=== PATIENT | female | born 2000 | race Caucasian/White ===

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

== ENCOUNTER → 2020-12-14 | Outpatient (CLI) | payer OTHER ==
--- NOTE | 2020-12-14 13:45 | RAD ---
EXAM: Renal sonogram. HISTORY: Cystitis. TECHNIQUE: Sonographic imaging of the kidneys and bladder was performed. COMPARISON: None. FINDINGS: The kidneys are normal in size. No solid or cystic renal lesion is seen. There is no hydron ephrosis. The prevoid bladder volume is 335 cc. The ureteral jets are both seen. The bladder wall is normal in thickness. The aorta is normal in caliber. The inferior vena cava is patent. IMPRESSION: Sonographically unremarkable kidneys and urinary bladder. Electronically signed by: Samaria Saldivar MD (12/14/2020 1:42 PM) [id number]
== END ==
LOC: US 12:47
PROVIDERS: ATTEND Urology
DX: N30.21 Other chronic cystitis with hematuria (principal)
CPT/HCPCS: 76770

== ENCOUNTER 2021-10-04 02:40 | Emergency (ER) | payer OTHER ==
[~2021-10-04] VITALS: Ht 162.6 cm; Wt 68.4 kg
--- NOTE | 2021-10-04 02:52 | PHYS DOC ---
Past History Past Medical History: No Pertinent History, Constipation Past Surgical History: No Surgical History Smoking: Non-smoker Alcohol Use: None Drug Use: None General Adult EDM: Chief Complaint: ABDOMINAL PAIN HPI: HPI: ".. I ve had bad abdomen pain.. I could not sleep.. I get abd. pain.. but this is worse than usual... " Patient is a 21 year old male who presents with above hx of abdomen pain. Pain is described as generalized with some localization to epigastric abdomen and left flank. Patient has had past medical history of constipation. Uses a IUD for control. No history of STDs. No recent travel. Did eat abdominals tonight for dinner. Patient has had some history of suspect IBS. Patient has had COVID vaccination x3. Has not had flu vaccination. No history of trauma. No history of vaginal discharge. No specific ill contacts. Review of Systems: Review of Systems: Constitutional: Denies fever or chills Eyes: Denies change in visual acuity HENT: Denies nasal congestion or sore throat Respiratory: Denies cough or shortness of breath Cardiovascular: Denies chest pain or edema GI: Denies abdominal pain, nausea, vomiting, bloody stools or diarrhea : Denies dysuria Musculoskeletal: Denies back pain or joint pain Integument: Denies rash Neurologic: Denies headache, focal weakness or sensory changes Endocrine: Denies polyuria or polydipsia Lymphatic: Denies swollen glands Psychiatric: Denies depression or anxiety Family History: Family History: Kidney stones with mother Current Medications: Current Meds: See nursing for home meds Allergies: Allergies: Allergies Coded Allergies Type Severity Reaction Last Updated Verified Beef Containing Products Allergy Severe 11/23/16 Yes Physical Exam: PE: Constitutional: Well developed, well nourished, moderate acute distress, non- toxic appearance. [] HENT: Normocephalic, atraumatic, bilateral external ears normal, oropharynx moist, no oral exudates, nose normal. [] Eyes: PERRLA, EOMI, conjunctiva normal, no discharge. [] Neck: Normal range of motion, no tenderness, supple, no stridor. [] Cardiovascular:Heart rate regular rhythm, no murmur [] Lungs & Thorax: Bilateral breath sounds equal apex on auscultation [] Abdomen: Bowel sounds normal, soft, epigastric and right mid tenderness, no masses, no pulsatile masses. Distended. Mild rebound pain to epigastric. Skin: Warm, dry, no erythema, no rash. [] Back: No tenderness, no CVA tenderness. [] Extremities: No tenderness, no cyanosis, no clubbing, ROM intact, no edema. No psoas sign. Neurologic: Alert and oriented X 3, normal motor function, normal sensory function, no focal deficits noted. [] Psychologic: Affect very anxious, judgement normal, mood normal. [] EKG: EKG: [] Radiology/Procedures: Radiology/Procedures: [address] [address] IMAGING REPORT Signed PATIENT: ROX MENJIVAR ACCOUNT: [id number] : 2000 LOCATION: ER AGE: 21 SEX: F EXAM STATUS: REG ER ORD. PHYSICIAN: ALVARO PLASCENCIA MD REASON: Left sided and lower abdomen pain Omni 300 75cc PROCEDURE: CT ABD PELV W/ORAL&IV CONTRAST CT OF THE ABDOMEN AND PELVIS WITH IV CONTRAST. History: Reason: Left sided and lower abdomen pain Omni 300 75cc / Spl. Inst ructions: / History: Comparison:None. Procedure: Contiguous axial images of the abdomen and pelvis were performed after the administration of 75 cc of Omnipaque 300 IV contrast and oral contrast. Findings: There is an IUD which appears well seated in the uterus. There is mild free fluid in the pelvis. 1.9 similar hypoattenuating lesion in the pelvis and left tibia and ovarian cyst. The appendix is normal. The gallbladder appears normal. Liver: Unremarkable Spleen: Unremarkable Pancreas: Unremarkable Adrenal Glands: Unremarkable Kidneys: Unremarkable There is no mass or lymphadenopathy. There is no free air. There is no free fluid. The urinary bladder appears normal. Impression: 1. IUD in the uterus appears well-positioned. 2. Mild free fluid in the pelvis could be due to a ruptured ovarian cyst. There is also small cyst in the left ovary. This assumes the patient is not . End Impression PQRS Compliance Statement: One or more of the following individualized dose reduction techniques were utilized for this examination: 1. Automated exposure control 2. Adjustment of the mA and/or kV according to patient size 3. Use of iterative reconstruction technique Electronically signed by: Casi Collins III, MD (10/04/2021 4:48 AM) [facility] DICTATED AND SIGNED BY: CASI COLLINS III, MD DATE: 10/04/21 044 CC: ALVARO PLASCENCIA MD; KYLIE CABRERA MD ~MTH0 0 [][place] [address] IMAGING REPORT Signed PATIENT: ROX MENJIVAR ACCOUNT: [id number] : 2000 LOCATION: ER AGE: 21 SEX: F EXAM STATUS: REG ER ORD. PHYSICIAN: ALVARO PLASCENCIA MD REASON: Abdomen pain PROCEDURE: ACUTE ABDOMEN SERIES Acute Abdominal Series: Technique: PA view of the chest and supine and upright views of the abdomen were obtained. History: Pain. Comparison: None. Findings: There is an IUD in the pelvis which is presumably well seated in the uterus. There is air and stool scattered throughout the colon. There is a paucity of small bowel gas. The lungs and pleural margins are clear. There is no free air. Impression: Nonobstructive bowel gas pattern consistent with mild constipation. Electronically signed by: Casi Collins III, MD (10/04/2021 3:32 AM) [facility] DICTATED AND SIGNED BY: CASI COLLINS III, MD DATE: 10/04/21 033 CC: ALVARO PLASCENCIA MD; KYLIE CABRERA MD ~MTH0 0 Heart Score: C/O Chest Pain: N/A Risk Factors: Risk Factors: DM, Current or recent (<one month) smoker, HTN, HLP, family history of CAD, obesity. Risk Scores: Score 0 - 3: 2.5% MACE over next 6 weeks - Discharge Home Score 4 - 6: 20.3% MACE over next 6 weeks - Admit for Clinical Observation Score 7 - 10: 72.7% MACE over next 6 weeks - Early Invasive Strategies Course & Med Decision Making: Course & Med Decision Making Pertinent Labs and Imaging studies reviewed. (See chart for details) Patient remain on clear fluid diet for the next couple days. No solids or milk products. Push fluids. Follow-up primary care. Consider evaluation with colonoscopy to evaluate weight for colitis. Pt. does have some findings consistent with rupture ovarian cyst. Impression: 1. Abdomen Pain 2. Constipation 3. History of IBS 4. Suspect ruptured Ovarian Cyst [] Dragon Disclaimer: Dragon Disclaimer: This electronic medical record was generated, in whole or in part, using a voice recognition dictation system. Departure Departure: Referrals: KYLIE CABRERA MD (PCP) Brian Disclaimer This chart was dictated in whole or in part using Voice Recognition software in a busy, high-work load, and often noisy Emergency Department environment. It may contain unintended and wholly unrecognized errors or omissions. Dragon Disclaimer This chart was dictated in whole or in part using Voice Recognition software in a busy, high-work load, and often noisy Emergency Department environment. It may contain unintended and wholly unrecognized errors or omissions. ALVARO PLASCENCIA MD Oct 04, 2021 02:52
[2021-10-04] MEDS ORDERED: KETOROLAC 30 MG/ML VIAL. IVP ONE (03:00)
[2021-10-04] MEDS ORDERED: IV RINGERS SOLUTION,LACTATED 1,000 ML IV SCH (03:00)
[2021-10-04] MEDS ORDERED: ONDANSETRON PF 4 MG/2 ML VIAL. IVP ONE (03:00)
[2021-10-04] MEDS ORDERED: FAMOTIDINE 20 MG/2 ML VIAL IVP ONE (03:00)
[2021-10-04] MEDS ORDERED: MAGNESIUM HYDROXIDE 2,400 MG/30 ML ORAL.SUSP. PO ONE (03:15)
[2021-10-04] MEDS ORDERED: IOHEXOL 240 MG/ML 50ML VIAL. ONE (03:29)
[2021-10-04] MEDS ORDERED: IOHEXOL 300 MG/ML 75 ML VIAL. IV ONE (03:30)
--- NOTE | 2021-10-04 03:34 | RAD ---
Acute Abdominal Series: Technique: PA view of the chest and supine and upright views of the abdomen were obtained. History: Pain. Comparison: None. Findings: There is an IUD in the pelvis which is presumably well seated in the uterus. There is air and stool s cattered throughout the colon. There is a paucity of small bowel gas. The lungs and pleural margins are clear. There is no free air. Impression: Nonobstructive bowel gas pattern consistent with mild constipation. Electronically signed by: Dustin Foreman III, MD (10/04/2021 3:32 AM) [facility]
[2021-10-04 03:42] LABS: BASO % 0 % (0-3); EOS % 0 % (0-3); HEMATOCRIT 42.3 % (36.0-47.0); HEMOGLOBIN 14.5 g/dL (12.0-15.5); LYMPH # 1.6 x10^3/uL (1.0-4.8); LYMPH % 19 % (24-48); MEAN CORPUSCULAR HEMOGLOBIN 32 pg (25-35); MEAN CORPUSCULAR HGB CONC 34 g/dL (31-37); MEAN CORPUSCULAR VOLUME 95 fL (79-100); MONO # 0.5 x10^3/uL (0.0-1.1); MONO % 6 % (0-9); NEUT # 6.3 x10^3uL (1.8-7.7); NEUT % 74 % (31-73); PLATELET COUNT 327 x10^3/uL (140-400); RED BLOOD COUNT 4.46 x10^6/uL (3.50-5.40); RED CELL DISTRIBUTION WIDTH 12.2 % (11.5-14.5); WHITE BLOOD COUNT 8.6 x10^3/uL (4.0-11.0)
[2021-10-04 03:55] LABS: INFLUENZA A PATIENT NEGATIVE (NEGATIVE); INFLUENZA B PATIENT NEGATIVE (NEGATIVE)
[2021-10-04 03:55] LABS: BILIRUBIN,URINE NEG (NEG); CLARITY,URINE CLEAR; COLOR,URINE YELLOW; GLUCOSE,URINE NEG (NEG)
[2021-10-04 03:56] LABS: BACTERIA,URINE FEW /HPF (0-FEW); NITRITE,URINE NEG (NEG); RBC,URINE OCC /HPF (0-2); SQUAMOUS EPITHELIAL CELL,UR FEW /LPF; WBC,URINE OCC /HPF (0-4)
[2021-10-04 04:05] LABS: BARBITURATES NEG (NEG); BENZODIAZEPINES NEG (NEG); CANNABINOIDS NEG (NEG); COCAINE NEG (NEG); METHADONE NEG (NEG); OPIATES NEG (NEG); PHENCYCLIDINE NEG (NEG)
[2021-10-04 04:06] LABS: CALCIUM 8.7 mg/dL (8.5-10.1); CREATININE 0.8 mg/dL (0.6-1.0); GFR 90.5; POTASSIUM 3.8 mmol/L (3.5-5.1)
[2021-10-04 04:08] LABS: AMPHETAMINE/METHAMPHETAMINE NEG (NEG)
[2021-10-04 04:09] LABS: ALBUMIN 4.1 g/dL (3.4-5.0); DIRECT BILIRUBIN 0.2 mg/dL (0.0-0.2); TOTAL PROTEIN 7.7 g/dL (6.4-8.2)
--- NOTE | 2021-10-04 04:50 | RAD ---
CT OF THE ABDOMEN AND PELVIS WITH IV CONTRAST. History: Reason: Left sided and lower abdomen pain Omni 300 75cc / Spl. Instructions: / History: Comparison:None. Procedure: Contiguous axial images of the abdomen and pelvis were performed after the administration of 75 cc o f Omnipaque 300 IV contrast and oral contrast. Findings: There is an IUD which appears well seated in the uterus. There is mild free fluid in the pelvis. 1.9 similar hypoattenuating lesion in the pelvis and left tibia and ovarian cyst. The appendix is normal. The gallbladder appears normal. Liver: Unremarkable Spleen: Unremarkable Pancreas: Unremarkable Adrenal Glands: Unremarkable Kidneys: Unremarkable There is no mass or lymphadenopathy. There is no free air. There is no free fluid. The urinary bladder appears normal. Impression: 1. IUD in the uterus appears well-positioned. 2. Mild free fluid in the pelvis could be due to a ruptured ovarian cyst. There is also small cyst in the left ovary. This assumes the patient is not . End Impression PQRS Compliance Statement: One or more of the following individualized dose reduction techniques were utilized for this examinat ion: 1. Automated exposure control 2. Adjustment of the mA and/or kV according to patient size 3. Use of iterative reconstruction technique Electronically signed by: Dustin Foreman III, MD (10/04/2021 4:48 AM) [facility]
[2021-10-04 04:58] VITALS: BP 105/74
== END 2021-10-04 05:26 | disposition home or self-care (01) ==
LOC: ER 02:40
DX: K59.00 Constipation, unspecified (principal); Z20.822 Contact with and (suspected) exposure to COVID-19; Z91.018 Allergy to other foods
CPT/HCPCS: 36415; 74022; 74177; 80048; 80076; 80307; 81001; 81025; 82150; 83690; 85025; 87428; 96361; 96374; 96375; 99285; J1885; J2405; J3490; J7120; Q9967